=== PATIENT | male | born 1980 | race Caucasian/White ===

== ENCOUNTER 2018-01-15 10:38 | Outpatient (CLI) | payer MEDICAID, SELFPAY ==
[2018-01-16 09:50] LABS: HIV-1/2 Ag & Ab Screen Negative (NEGAT)
== END 2018-01-15 10:58 ==
PROVIDERS: PCP Nurse Practitioner Family; Visit Provider Nurse Practitioner Family
DX: Z11.4 Encounter for screening for human immunodeficiency virus [HIV] (principal)
CPT/HCPCS: 36415; 87389

== ENCOUNTER 2018-07-09 15:21 | Outpatient (CLI) | payer MEDICAID, SELFPAY ==
[2018-07-11 12:05] LABS: HIV-1/2 Ag & Ab Screen Negative (NEGAT)
[2018-07-11 12:36] LABS: Hepatitis C Ab w Rflx HCV PCR Reactive (NEGAT)
[2018-07-11 12:58] LABS: Syphilis Serology (RPR) Positive (Negative)
[2018-07-11 14:05] LABS: HSV Type 1 Ab, IgG Positive; HSV Type 2 Ab, IgG Negative
[2018-07-17 15:08] LABS: Syphilis IgG Ab w/Reflex Reactive (Nonreactive)
[2018-07-17 15:09] LABS: Rapid Plasma Reagin w/Reflex Reactive (Nonreactive)
== END 2018-07-09 15:41 ==
PROVIDERS: PCP Nurse Practitioner Family; Visit Provider Nurse Practitioner Family
DX: Z11.9 Encounter for screening for infectious and parasitic diseases, unspecified (principal); Z72.51 High risk heterosexual behavior; Z11.4 Encounter for screening for human immunodeficiency virus [HIV]; Z11.59 Encounter for screening for other viral diseases
CPT/HCPCS: 36415; 86593; 86803; 87389; 86592; 86695; 86696; 86780; 87522